=== PATIENT | male | born 1955 | race Caucasian/White ===

== ENCOUNTER → 2020-04-11 | Outpatient (CLI) | payer OTHER ==
[~2020-04-11] MED LIST: CLONAZEPAM 1 MG1 M1 PO; CYMBALTA60 MG PO; NEXIUM20 MG PO; TRAZODONE HCL100 MG PO
== END ==
LOC: M.LAB 10:17
PROVIDERS: ATTEND Surgery
DX: Z01.818 Encounter for other preprocedural examination (principal); Z11.59 Encounter for screening for other viral diseases

== ENCOUNTER → 2020-04-16 | Day surgery (SDC) | payer OTHER ==
[~2020-04-16] MED LIST changes: +NORCO 5-325 TA1 EAC2 PO
[2020-04-16 08:08] LABS: HEMOGLOBIN 17.2 gm/dL (14.0-18.0); MCH 29.8 pg (26.0-34.0); MCHC 34.4 g/dL (28.0-37.0); MCV 86.5 fL (80.0-100.0); MPV 7.4 fl. (7.2-11.1); RBC 5.78 mil/uL (4.50-6.00); RDW-CV 14.1 % (10.5-14.5); WBC 6.7 thou/uL (4.0-11.0)
[2020-04-16 08:11] LABS: CALCIUM 9.1 mg/dL (8.5-10.1); CREATININE 1.4 mg/dL (0.6-1.3)
[2020-04-16 08:30] LABS: ALBUMIN 4.1 g/dL (3.4-5.0); TOTAL BILIRUBIN 0.4 mg/dL (<0.1-1.0); TOTAL PROTEIN 8.2 g/dL (6.4-8.2)
--- NOTE | 2020-04-18 13:08 | PATH ---
[address] [address] PATHOLOGY RPT PROCEDURE Name: AWILDA BRYANT Room: [facility]#: [id number] Admission: 04/16/20 Date of : 55 Discharge: Report #: [id number] Path Case #: [id number] [facility] Accession Number: [id number] . 01 Material submitted: . gallbladder - GALLBLADDER AND CONTENTS . 01 Clinical history: . Calculous gallbladder . 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 (JOHN:pit 04/18/2020) [facility] 04/18/2020 0958 Local . 02 Electronically signed: . Zack Mcmanus MD, Pathologist NPI- [id number] . 01 Gross description: . The specimen is received in formalin, labeled "Awilda Bryant, gallbladder and contents" and consists of an intact yellow-sanchez partially fat encased gallbladder measuring 9.1 x 2.6 x 1.8 cm. The margin is inked. Opening reveals thick green bile and a green granular calculus measuring 3.2 x 1.8 x 1.8 cm. The mucosa is green and granular with a wall thickness of 0.1 cm. No gross lesions or lymph nodes are identified. Finisher Polisher sections are submitted in A1. ([facility]; 04/16/2020) JFQ/JFQ 04/16/2020 [facility] Local . 02 Pathologist provided ICD-10: K81.1, K82.4 . 02 CPT . 984161 Specimen Comment: A courtesy copy of this report has been sent to [phone] Specimen Comment: [phone] Specimen Comment: Report sent to / DR DEL CASTILLO Performed at: [address] [id number] MD Jake Lennon MD Phone: [phone] [facility]formed at: [facility] [address] [place], [place] [id number] [address] [address] PATHOLOGY RPT PROCEDURE Name: AWILDA BRYANT [id number] Ad[facility]: 04/16/20 Date of : 55 Discharge: Report #: [id number] Path Case #: [id number] MD Zack Mcmanus MD Phone: [phone]
--- NOTE | 2020-04-19 13:14 | OP ---
[facility] [address] [place] [address] OPERATIVE REPORT Name: AWILDA WILHELM Room: [facility] Rebeca.#: [id number] Admission: 04/16/20 Attend Phys: Reymundo Mathews Discharge: Date of : 55 Report #: [id number] THIS REPORT FOR: //name// cc: Colin Webb MD, Kevin R. MD ~ THIS REPORT FOR: //name// CC: Reymundo Webb DATE OF SERVICE: 04/16/2020 PREOPERATIVE DIAGNOSIS: Symptomatic cholelithiasis. POSTOPERATIVE DIAGNOSIS: Symptomatic cholelithiasis. OPERATION: Laparoscopic cholecystectomy. SURGEON: Reymundo Mathews MD ANESTHESIA: General. ESTIMATED BLOOD LOSS: Minimal. SPECIMEN: Gallbladder. DESCRIPTION OF PROCEDURE: After informed consent was obtained, the patient was brought to the operating room and placed supine. SCDs were placed and working, preoperative antibiotics were administered, general anesthesia was induced. The abdomen was prepped and draped in the usual sterile fashion. A 10 mm incision was made above the umbilicus. Fascia was incised and a trocar was placed. Pneumoperitoneum was established. Three right upper quadrant 5 mm ports were placed. Gallbladder was grasped at the fundus and retracted cephalad. Infundibulum was grasped and retracted laterally. I dissected out the cystic duct and cystic artery. The cystic duct and artery were identified. The cystic plate was fully dissected out. The cystic duct was then clipped and ligated leaving 3 clips on the remaining duct and 2 on the remaining artery. Gallbladder was then taken off the liver bed with electrocautery. It was chronically inflamed. There was some oozing in the liver bed. This was controlled with cautery and a piece of the Surgicel. The gallbladder was placed into an Endopouch and removed. The fascia was then closed with a [id number] 0 Vicryl. Skin was closed with 4-0 Monocryl. Incisions were sealed with Dermabond. COMPLICATIONS: [place] [address] OPERATIVE REPORT Name: AWILDA WILHELM Room: [facility]#: [id number] Admission: 04/16/20 Attend Phys: Reymundo Mathews Discharge: Date of : 55 Report #: [id number] DISPOSITION: The patient was taken to recovery in satisfactory condition. <ELECTRONICALLY SIGNED> By: Reymundo Mathews MD 04/19/20 1314 1023 1034Reymundo Mathews MD /nt
== END | disposition home or self-care (01) ==
LOC: M.SUR 07:39
PROVIDERS: ATTEND Surgery
DX: K80.20 Calculus of gallbladder without cholecystitis without obstruction (principal); Z79.899 Other long term (current) drug therapy; Z82.49 Family history of ischemic heart disease and other diseases of the circulatory system